=== PATIENT | female | born 1950 | race Caucasian/White ===

== ENCOUNTER 2017-08-01 08:49 | Day surgery (SDC) | payer BC, MEDICARE ==
[2017-06-30 10:11] VITALS: BMI 21.9
[2017-08-01 09:58] LABS: BASO # 0.01 K/mm3 (0.0-2.0); BASO % 0.2 % (0.0-3.0); EOS % 0.5 % (1.5-5.0); GRAN # 5.12 (1.4-6.5); GRAN % 80.2 % (50.0-68.0); HEMOGLOBIN 11.7 g/dL (12.0-16.0); LYMPH # 0.8 (1.2-3.4); LYMPH % 12.4 % (22.0-35.0); MEAN CELL VOLUME 93.4 fl (80.0-105.0); MEAN CORPUSCULAR HEMOGLOBIN 29.6 pg (25.0-35.0); MEAN CORPUSCULAR HGB CONC 31.7 g/dl (31.0-37.0); MEAN PLATELET VOLUME 9.4 fl (7.0-11.0); MONO # 0.4 (0.1-0.6); MONO % 6.7 % (1.0-6.0); RBC 3.95 10^6/uL (3.5-6.1); RED CELL DISTRIBUTION WIDTH 12.6 % (11.5-14.5); WHITE BLOOD COUNT 6.4 10^3/ul (4.5-11.0)
[2017-08-01 10:07] LABS: PROTHROMBIN TIME 11.6 SECONDS (9.4-12.5)
[2017-08-01 10:08] LABS: INR 1.01 (0.93-1.08)
[2017-08-01 10:12] LABS: ALB/GLOB RATIO 1.6 (1.1-1.8); ALBUMIN 3.9 g/dL (3.0-4.8); ALT/SGPT 37 U/L (7-56); AMYLASE 87 U/L (35-125); AST/SGOT 29 U/L (14-36); BLOOD UREA NITROGEN 16 mg/dL (7-21); CALCIUM 8.9 mg/dL (8.4-10.5); GAMMA GLUTAMYL TRANSPEPTIDASE 27 U/L (8-78); GFR AFRICAN-AMERICAN > 60; GFR NON-AFRICAN AMERICAN > 60; LIPASE 150 U/L (23-300)
[2017-08-01] MEDS ORDERED: cefTRIAXone (Rocephin) 1 gm Inj ONE (11:09)
[2017-08-01] MEDS ORDERED: Midazolam 2 MG/2 ML VIAL ONE (11:18)
[2017-08-01] MEDS ORDERED: Sodium Chloride 0.9% 1,000 ML IV SCH (13:15)
--- NOTE | 2017-08-01 13:37 | CARD ---
APPROVED REPORT EKG Measurement Heart [id number] CT 180P40 [id number] <Conclusion> Sinus rhythm with frequent premature ventricular complexes Possible Left atrial enlargement Borderline ECG
[2017-08-01 15:18] VITALS: BP 151/91; PULSE 61; RESP 14; TEMP 98.3; O2SAT 99
--- NOTE | 2017-08-01 19:26 | CARD ---
APPROVED REPORT EKG Measurement Heart [id number] [place] 182P51 [id number] <Conclusion> Sinus rhythm with frequent premature ventricular complexes Possible Left atrial enlargement Borderline ECG
== END 2017-08-01 15:14 | disposition home or self-care (01) ==
LOC: ENDO 08:49
PROVIDERS: ATTEND Internal Medicine Gastroenterology
DX: K86.2 Cyst of pancreas (principal); K22.2 Esophageal obstruction; K83.8 Other specified diseases of biliary tract; K31.7 Polyp of stomach and duodenum; K29.50 Unspecified chronic gastritis without bleeding; K21.0 Gastro-esophageal reflux disease with esophagitis
CPT/HCPCS: 36415; 43238; 43239; 80053; 82150 ×2; 82977; 83690; 83735; 85025; 85610; 85730; 88305; 88312; 88342; 93005; J0696; J2001; J2250; J3010; J7040 ×2

== ENCOUNTER 2017-08-01 15:11 | Observation (INO) | payer BC, MEDICARE ==
[2017-08-01 15:39] VITALS: BMI 23.8
--- NOTE | 2017-08-01 15:40 | ED PDOC ---
Arrival/HPI - General Chief Complaint: Weakness/Neurological Deficit Time Seen by Provider: 08/01/17 15:36 Historian: Patient - History of Present Illness Narrative History of Present Illness (Text): 08/01/17 15:37 67 year old female, with past medical history of cardiac stent (1x) and arrhythmia (tachycardia as well as bradycardia) presents to the Emergency department for severe bradycardia during endoscopy prior to ED arrival. Patient was reported to have experienced HR as low as 21 bpm, pt was under sedation and did not remember the event; pt was provided with fluid resuscitation and pt's HR became normalized; pt gained consciousness and was told of the clinical findings. NO CPR was ever required. Patient reported no recollection of the event. Patient informs occasional palpitation but denies any chest pain, shortness of breath, fever, chills, nausea, vomiting, diarrhea, abdominal pain, urinary output changes, changes in bowel movement or any other complaints. Patient presents to the Emergency department for further evaluation. PMD/ Set Up Operator: Dr. Dawit Jose Ball Winder: Dr. Blu Vázquez Time/Duration: Prior to Arrival Symptom Onset: Sudden Symptom Course: Improving Activities at Onset: Rest, Other (Endoscopy) Context: Other (endoscopy/outpt facility) Past Medical History - Provider Review Nursing Documentation Reviewed: Yes - Travel History Have you recently traveled outside [place] w/in the past 3 mons?: No - Past History Past History: No Previous - Infectious Disease Hx of Infectious Diseases: None - Tetanus Immunization Tetanus Immunization: Unknown - Reproductive Menopause: Yes Currently : No - Cardiac Hx Pacemaker: No - Neurological Hx Paralysis: No - Hematological/Oncological Hx Blood Transfusions: No Hx Blood Transfusion Reaction: No - Musculoskeletal/Rheumatological Hx Musculoskeletal Disorders: No - Psychiatric Hx Emotional Abuse: No Hx Physical Abuse: No Hx Substance Use: No - Anesthesia Hx Anesthesia Reactions: No Hx Malignant Hyperthermia: No - Suicidal Assessment Feels Threatened In Home Enviroment: No Family/Social History - Physician Review Nursing Documentation Reviewed: Yes Family/Social History: No Known Family HX Smoking Status: Never Smoked Hx Alcohol Use: No (VERY RARE) Hx Substance Use: No Hx Substance Use Treatment: No Allergies/Home Meds Allergies/Adverse Reactions: Allergies sulfamethoxazole Allergy (Verified 08/01/17 16:06) RASH trimethoprim Allergy (Verified 08/01/17 16:06) RASH Home Medications: Home Meds Medication Instructions Recorded Confirmed Aspirin [Lo-Dose Aspirin EC] 81 mg PO DAILY 06/30/17 08/01/17 Atorvastatin [Lipitor] 40 mg PO DAILY 06/30/17 08/01/17 Cholecalciferol [Vitamin D 1000 IU] 2,000 iu PO DAILY 06/30/17 08/01/17 Clopidogrel [Plavix] 75 mg PO DAILY 06/30/17 08/01/17 Ezetimibe [Zetia] 10 mg PO DAILY 06/30/17 08/01/17 Metoprolol Succinate [Toprol XL] 25 mg PO DAILY 06/30/17 08/01/17 Prednisone [Brayden] 5 mg PO DAILY 06/30/17 08/01/17 Ranolazine [Ranexa] 500 mg PO DAILY 06/30/17 08/01/17 amLODIPine [Norvasc] 5 mg PO DAILY 06/30/17 08/01/17 Review of Systems - Physician Review All systems were reviewed & negative as marked: Yes - Review of Systems Constitutional: Normal. absent: Fevers Eyes: Normal ENT: Normal Respiratory: Normal. absent: SOB Cardiovascular: Palpitations, Other (Bradycardia). absent: Chest Pain Gastrointestinal: Normal. absent: Abdominal Pain, Stool Changes, Diarrhea, Nausea, Vomiting Genitourinary Female: Normal. absent: Urine Output Changes Musculoskeletal: Normal Skin: Normal Neurological: Normal Endocrine: Normal Hemo/Lymphatic: Normal Psychiatric: Normal Physical Exam Vital Signs Reviewed: Yes Vital Signs Temp Pulse Resp BP Pulse Ox 08/01/17 15:36 98.2 F 67 17 113/32 L 99 Temperature: Afebrile Blood Pressure: Hypotensive Pulse: Regular Respiratory Rate: Normal Appearance: Positive for: Well-Appearing, Non-Toxic, Comfortable, Other ( resting in bed, alert/awake, GCS = 15, oriented x 3, NAD, comfortable appearing , cooperative) Pain Distress: None Mental Status: Positive for: Alert and Oriented X 3 - Systems Exam Head: Present: Atraumatic, Normocephalic Pupils: Present: PERRL, Other (no nystagmus, no photophobia, sclera anicteric, visual field intact b/l) Extroacular Muscles: Present: EOMI Conjunctiva: Present: Normal Ears: Present: Normal Mouth: Present: Moist Mucous Membranes, Normal Teeth, Other (no drooling/stridor , no exudate/lesions) Pharnyx: Present: Normal Nose (External): Present: Atraumatic Nose (Internal): Present: Normal Inspection Neck: Present: Normal Range of Motion, Trachea Midline, Other (no step off, no midline tenderness, no nuchal rigidity, no meningeal signs). No: Meningeal Signs, MIDLINE TENDERNESS Respiratory/Chest: Present: Clear to Auscultation, Good Air Exchange, Other ( CTA b/l, no w/r/r). No: Respiratory Distress, Accessory Muscle Use Cardiovascular: Present: Normal S1, S2, Other (multiple ectopy/PVC visible on monitor; + palpable extra beats noted during exam). No: Murmurs Abdomen: Present: Normal Bowel Sounds, Other (well nourished female, no focal tenderness, no masses/rebound/guarding/rigidity, no hollis's sign, no mcburney' s point tenderness). No: Tenderness, Distention, Peritoneal Signs Back: Present: Normal Inspection. No: CVA Tenderness, Midline Tenderness Upper Extremity: Present: Normal Inspection, Normal ROM, NORMAL PULSES, Neurovascularly Intact, Capillary Refill < 2s. No: Cyanosis, Edema Lower Extremity: Present: Normal Inspection, NORMAL PULSES, Normal ROM, Neurovascularly Intact, Capillary Refill < 2 s. No: Edema Neurological: Present: GCS=15, CN II-XII Intact, Speech Normal, Other (NIH stroke scale ~ 0) Skin: Present: Warm, Dry, Normal Color, Other (cap refill < 1sec, no ulcerations , no petechiae). No: Rashes Psychiatric: Present: Alert, Oriented x 3, Normal Insight, Normal Concentration Medical Decision Making ED Course and Treatment: 08/01/17 15:53 Impression: 67 year old female presents to the Emergency department for bradycardia prior to arrival. Differential Diagnosis included but are not limited to: sinus arrhythmia, rule out electrolyte imbalance vs. thyroid dysfunction vs. cardiac pathology Plan: -- EKG -- Labs -- Chest X-ray -- Aspirin -- IV Fluids -- Urinalysis -- Reassess and disposition Progress Notes: 08/01/17 17:10 pt is currently comfortable, denied any chest pain/palpitations due to patients abnl arrhythmia during GI procedure (endoscopy) prior to ED arrival, and given pt's multiple risk factors (i.e extensive heart disease, age) , i do not feel comfortable that the patient can be discharged home and will recommend admission for further observation, monitor patient's HR pt is made aware of her medical results agrees with admission/observation 08/01/17 17:[address] Hare, on-call PCP, made aware, agrees with admission/observation ; would like his medical practice manager contacted/paged and notified [phone] medical practice manager contacted, made aware, will see patient Re-evaluation Time: 17:08 Reassessment Condition: Improved - Critical Care Critical Care Minutes: 30 minutes Critical Care Time: Excluding Proc Time Narrative Critical Care (Text): 08/01/17 17:09 critical care time: 30min, excluding procedure time, excluding time teaching residents/students/mid-level providers; including initial eval/diagnosis, diagnostic interpretation, re-eval, consultations, final disposition - Lab Interpretations Lab Results: 08/01/17 15:45 08/01/17 15:45 Lab Results 08/01/17 16:38: Urine Color straw, Urine Appearance Clear, Urine pH 6.0, Ur Specific [place] 1.010, Urine Protein Negative, Urine Glucose (UA) Negative, Urine Ketones Negative, Urine Blood Negative, Urine Nitrate Negative, Urine Bilirubin Negative, Urine Urobilinogen 0.2, Ur Leukocyte Esterase Negative 08/01/17 15:45: TSH 3rd Generation 1.01 08/01/17 15:45: Sodium 142, Potassium 4.1, Chloride 106, Carbon Dioxide 26, Anion Gap 14, BUN 12, Creatinine 0.6 L, Est GFR ( Amer) > 60, Est GFR ( Non-Af Amer) > 60, Random Glucose 119 H, Calcium 8.4, Magnesium 2.0, Total Bilirubin 0.6, AST 26, ALT 42, Alkaline Phosphatase 64, Lactate Dehydrogenase 386, Total Creatine Kinase 38, Troponin I < 0.01, Total Protein 6.3, Albumin 3.8 , Globulin 2.5, Albumin/Globulin Ratio 1.5 08/01/17 15:45: PT 11.2, INR 0.98, APTT 37.8 H 08/01/17 15:45: WBC 4.8 D, RBC 3.89, Hgb 11.7 L, Hct 36.5, MCV 93.8, MCH 30.1, MCHC 32.1, RDW 12.7, Plt Count 208, MPV 9.4, Gran % 72.9 H, Lymph % (Auto) 18.3 L, [place] % (Auto) 8.6 H, Eos % (Auto) 0.2 L, Baso % (Auto) 0.0, Gran # 3.46, Lymph # (Auto) 0.9 L, [place] # (Auto) 0.4, Eos # (Auto) 0.0, Baso # (Auto) 0.00 I have reviewed the lab results: Yes Interpretation: All labs normal - RAD Interpretation Narrative RAD Interpretations (Text): 08/01/17 16:28 CXR - NAD Radiology Orders: 08/01/17 15:39 CHEST TWO VIEWS (PA/LAT) [RAD] Stat Chemical Sprayer: ED Physician - EKG Interpretation EKG Interpretation (Text): 08/01/17 17:20 Normal Sinus rhythm at 60 bpm, RAD, + ectopy, no st-t changes, otherwise BORDERLINE EKG; no old ekg to compare with Interpreted by ED Physician: Yes Type: 12 lead EKG Comparison: No previous EKG avail. - Medication Orders Current Medication Orders: Sodium Chloride (Sodium Chloride 0.9%) 1,000 mls @ 100 mls/hr IV .Q10H YANI Last Admin: 08/01/17 15:59 Dose: 100 mls/hr eMAR Start Stop Document 08/01/17 15:59 EWO (Rec: 08/01/17 15:59 EWO [id number]) Intravenous Solution Start Date 08/01/17 Start Time 15:59 Discontinued Medications Aspirin (Aspirin) 325 mg PO STAT STA Stop: 08/01/17 15:40 Last Admin: 08/01/17 15:59 Dose: 325 mg - Scribe Statement The provider has reviewed the documentation as recorded by the Adrian Palomino. All medical record entries made by the Adrian were at my direction and personally dictated by me. I have reviewed the chart and agree that the record accurately reflects my personal performance of the history, physical exam, medical decision making, and the department course for this patient. I have also personally directed, reviewed, and agree with the discharge instructions and disposition. Disposition/Present on Arrival - Present on Arrival Any Indicators Present on Arrival: No History of DVT/PE: No History of Uncontrolled Diabetes: No Urinary Catheter: No History of Decub. Ulcer: No History Surgical Site Infection Following: None - Disposition Have Diagnosis and Disposition been Completed?: Yes Diagnosis: Bradycardia associated with anesthesia, General medical exam Disposition: HOSPITALIZED Disposition Time: 17:08 Patient Plan: Admission, Observation Patient Problems: Current Active Problems Problem Status Onset Bradycardia associated with anesthesia Acute Condition: STABLE Print Language: K[place] Referrals: Domingo Jose MD [Primary Care Provider] - Follow up with primary Forms: [place]bin (Romansh)
[2017-08-01 15:57] LABS: EOS % 0.2 % (1.5-5.0); GRAN # 3.46 (1.4-6.5); GRAN % 72.9 % (50.0-68.0); HEMOGLOBIN 11.7 g/dL (12.0-16.0); LYMPH # 0.9 (1.2-3.4); LYMPH % 18.3 % (22.0-35.0); MEAN CELL VOLUME 93.8 fl (80.0-105.0); MEAN CORPUSCULAR HEMOGLOBIN 30.1 pg (25.0-35.0); MEAN CORPUSCULAR HGB CONC 32.1 g/dl (31.0-37.0); MEAN PLATELET VOLUME 9.4 fl (7.0-11.0); MONO # 0.4 (0.1-0.6); MONO % 8.6 % (1.0-6.0); RBC 3.89 10^6/uL (3.5-6.1); RED CELL DISTRIBUTION WIDTH 12.7 % (11.5-14.5); WHITE BLOOD COUNT 4.8 10^3/ul (4.5-11.0)
[2017-08-01] MEDS: Sodium Chloride 0.9% 1,000 ML IV SCH ×2 (15:59→20:11)
[2017-08-01 16:15] LABS: INR 0.98 (0.93-1.08); PARTIAL THROMBOPLASTIN TIME 37.8 Seconds (25.1-36.5); PROTHROMBIN TIME 11.2 SECONDS (9.4-12.5)
[2017-08-01 16:16] LABS: ALB/GLOB RATIO 1.5 (1.1-1.8); ALBUMIN 3.8 g/dL (3.0-4.8); ALT/SGPT 42 U/L (7-56); AST/SGOT 26 U/L (14-36); BLOOD UREA NITROGEN 12 mg/dL (7-21); CALCIUM 8.4 mg/dL (8.4-10.5); GFR AFRICAN-AMERICAN > 60; GFR NON-AFRICAN AMERICAN > 60
[2017-08-01 16:22] LABS: TROPONIN I < 0.01 ng/mL
[2017-08-01 16:42] LABS: URINE BILIRUBIN NEGATIVE (NEGATIVE); URINE BLOOD NEGATIVE (NEGATIVE); URINE GLUCOSE (UA) NEGATIVE (NEGATIVE); URINE LEUKOCYTE ESTERASE NEGATIVE Leu/uL (NEGATIVE); URINE PROTEIN NEGATIVE mg/dL (<30 mg/dL); URINE UROBILINOGEN 0.2 E.U./dL (<1 E.U./dL)
[2017-08-01 16:43] LABS: URINE APPEARANCE CLEAR (CLEAR)
--- NOTE | 2017-08-01 18:36 | CP.PCM.HP ---
<Ashia Steward - Last Filed: 08/01/17 20:38> History of Present Illness - History of Present Illness History of Present Illness: This patient is a 67 year old female with a PMHx significant for HTN, CAD w/ Stent placement (2012), Stroke (2012, with Left lower extremity residual defect) , fibromyalgia rheumatica, walking pneumonia, and abnormal stress test in 2013. Patient recently finished endoscopy and was in the PACU when the nurses noticed bradycardia in the 20's on the heart monitor. Patient does not remember the event and states she was asymptomatic but was told that she passed out and took some time to be awoken. She denies any fever, chills, SOB, chest pain, palpitations, generalized weakness, motor/sensory loss, abdominal pain, changes in bowel habits or urinary symptoms. She does complain of slight throat pain which is likely secondary to the procedure. ROS: As per HPI PMHx: HTN, CAD w/ Stent placement (2012), Stroke (2012, with Left lower extremity residual defect), fibromyalgia rheumatica, walking pneumonia, and abnormal stress test in 2012. PSHx: Stent 2012, Vasectomy, x 4, Right pleurectomy, Colonoscopy over 5 years ago (Normal) Allergies: Bactrim SocialHx: Denies any Tobacco, alcohol, or illicit drug use. Works as a nurse. FamHx: Mother - HLD, Father - Lung CA Meds: Reviewed PMD: Dr. Rebeca Lane. Present on Admission - Present on Admission Any Indicators Present on Admission: No Review of Systems - Review of Systems Review of Systems: As per HPI Past Patient History - Infectious Disease Hx of Infectious Diseases: None - Tetanus Immunizations Tetanus Immunization: Unknown - Past Social History Smoking Status: Never Smoked - CARDIAC Hx Pacemaker: No - PULMONARY Hx Respiratory Disorders: No - NEUROLOGICAL Hx Paralysis: No - HEENT Hx HEENT Problems: Yes Hx Cataracts: Yes - ENDOCRINE/METABOLIC Hx Hypothyroidism: Yes - HEMATOLOGICAL/ONCOLOGICAL Hx Blood Transfusions: No Hx Blood Transfusion Reaction: No - MUSCULOSKELETAL/RHEUMATOLOGICAL Hx Musculoskeletal Disorders: No - PSYCHIATRIC Hx Emotional Abuse: No Hx Physical Abuse: No Hx Substance Use: No - SURGICAL HISTORY Hx Surgeries: Yes Hx Cataract Extraction: Yes Hx Cardiac Catheterization: Yes Hx Cholecystectomy: Yes Hx Coronary Stent: Yes - ANESTHESIA Hx Anesthesia Reactions: No Hx Malignant Hyperthermia: No Meds Allergies/Adverse Reactions: Allergies Allergy/AdvReac Type Severity Reaction Status Date / Time sulfamethoxazole Allergy RASH Verified 08/01/17 16:06 trimethoprim Allergy RASH Verified 08/01/17 16:06 Physical Exam - Constitutional Appears: Well, Non-toxic, No Acute Distress - Head Exam Head Exam: ATRAUMATIC, NORMAL INSPECTION - Eye Exam Eye Exam: EOMI, Normal appearance, PERRL - ENT Exam ENT Exam: Mucous Membranes Moist - Neck Exam Neck exam: Negative for: Lymphadenopathy - Respiratory Exam Respiratory Exam: Clear to Auscultation Bilateral, NORMAL BREATHING PATTERN. absent: Rales, Rhonchi, Wheezes - Cardiovascular Exam Cardiovascular Exam: Irregular Rhythm, +S1, +S2. absent: Bradycardia, Tachycardia, JVD Additional comments: No Carotid Bruit - GI/Abdominal Exam GI & Abdominal Exam: Normal Bowel Sounds, Soft. absent: Tenderness - Extremities Exam Extremities exam: Positive for: normal capillary refill. Negative for: pedal edema - Neurological Exam Neurological exam: Alert, Oriented x3 - Psychiatric Exam Psychiatric exam: Normal Affect, Normal Mood Results - Vital Signs Recent Vital Signs: Last Vital Signs Temp 98.2 F 08/01/17 15:36 Pulse 63 08/01/17 17:24 Resp 18 08/01/17 17:24 BP 122/64 08/01/17 17:24 Pulse Ox 100 08/01/17 17:24 - Labs Result Diagrams: 08/01/17 15:45 08/01/17 15:45 Assessment & Plan - Assessment and Plan (Free Text) Assessment: 67 year old female with a PMHx significant for HTN, CAD w/ Stent placement (2012 ), Stroke (2012, with Left lower extremity residual defect), fibromyalgia rheumatica, walking pneumonia, and abnormal stress test admitted to observation for evaluation and treatment of bradycardia. Plan: Bradycardia EKG (ED): Sinus Rhythym with frequent PVC. Will repeat EKG x 2 Trop #1 - NEGATIVE, Trop #2 - PENDING Atropine to be kept at bedside. Normal Saline @ 100mls/hr Cardiology Consult (Dr. Sosa) HTN Hold Metoprolol/Hold Norvasc. Hx of CAD with Stent/HLD Home ASA/Plavix Home Lipitor 40mg HS Home Zetia 10mg PO Vitamin D Def. Home Vitamin D 2000 Daily Fibromyalgia Rheumatica Home Prednisone 5mg Daily DVT Proph Lovenox Patient discussed with Dr. Ananya Steward, PGY-1 <Remigio Hare U - Last Filed: 08/04/17 17:51> Results - Vital Signs Recent Vital Signs: Last Vital Signs Temp 98.3 F 08/02/17 12:00 Pulse 58 L 08/02/17 12:00 Resp 20 08/02/17 12:00 BP 147/63 08/02/17 12:00 Pulse Ox 97 08/02/17 09:00 - Labs Result Diagrams: 08/01/17 15:45 08/01/17 15:45 Attending/Attestation - Attestation I have personally seen and examined this patient.: Yes I have fully participated in the care of the patient.: Yes I have reviewed all pertinent clinical information: Yes Notes (Text): Please see/read my dictated notes.
--- NOTE | 2017-08-01 18:47 | RAD ---
HISTORY: bradycardia during a procedure COMPARISON: No prior. TECHNIQUE: Chest PA and lateral FINDINGS: LUNGS: No active pulmonary disease. PLEURA: No significant pleural effusion identified. No pneumothorax apparent. CARDIOVASCULAR: Normal. OSSEOUS STRUCTURES: No significant abnormalities. VISUALIZED UPPER ABDOMEN: Normal. OTHER FINDINGS: None. IMPRESSION: No active disease.
--- NOTE | 2017-08-01 19:25 | CARD ---
APPROVED REPORT EKG Measurement Heart [id number] [place] 184P70 [id number] <Conclusion> Sinus rhythm with frequent premature ventricular complexes Otherwise normal ECG
[2017-08-01] MEDS: Cholecalciferol 1,000 INTLU TAB PO SCH (22:13)
[2017-08-01 22:44] LABS: HDL CHOLESTEROL 56 mg/dL (29-60)
[2017-08-01 22:55] LABS: LDL CHOLESTEROL 44 mg/dL (0-129)
[2017-08-01 22:58] LABS: TROPONIN I < 0.01 ng/mL
[2017-08-01 23:04] LABS: FREE T4 1.27 ng/dL (0.78-2.19); T4 8.9 ug/dL (5.5-11.0)
[2017-08-02] MEDS: Sodium Chloride 0.9% 1,000 ML IV SCH ×2 (02:59→05:59)
[2017-08-02] MEDS ORDERED: Pantoprazole 40 mg EC Tab PO SCH (06:00)
[2017-08-02] MEDS: Cholecalciferol 1,000 INTLU TAB PO SCH (10:05)
[2017-08-02] MEDS: Enoxaparin 40 mg Syringe SC SCH ×2 (10:06→10:10)
[2017-08-02 11:46] VITALS: O2SAT 97
[2017-08-02 13:18] VITALS: BP 147/63; PULSE 58; RESP 20; TEMP 98.3
--- NOTE | 2017-08-02 21:49 | CON ---
DATE: 08/02/2017 HISTORY The patient is a 67-year-old woman who developed hemodynamics with significant bradycardia during a GI workup. PAST MEDICAL HISTORY: Notable for PTCA and stent 4 years ago in the LAD. She continues on Ranexa and clopidogrel as well as beta blockers. No stress test has been done recently. The patient suffers from hypertension without history of diabetes mellitus. She does suffer from hypercholesterolemia. SOCIAL HISTORY The patient does not smoke. REVIEW OF SYSTEMS: Fourteen-point review of systems is reviewed in detail. No cardiac symptomatology is noted. The patient feels well. PHYSICAL EXAMINATION: VITAL SIGNS: Blood pressure 131/53, heart rate is in the 50s. Normal sinus rhythm. NECK: Negative JVD. LUNGS: Without rales. HEART: S1, S2. EXTREMITIES: Without edema. LABORATORY DATA: Troponins are negative x2. TFTs are normal. Hemoglobin is 11.7. IMPRESSION 1. Transient hemodynamic significant bradycardia, likely due to a vasovagal effect during gastrointestinal procedure. 2. Stable angina. 3. Coronary artery disease. 4. Hypertension. 5. Hypercholesterolemia. PLAN: Given these findings, the patient is stable for discharge today. I have asked the patient to stop her beta-blockers. We will arrange for an outpatient stress test to evaluate her previous stent in the LAD. At that time, her medications can be stopped. Potential Plavix cessation as well as Ranexa cessation will depend on her stress test results. Jose Luis Sosa MD
--- NOTE | 2017-08-02 23:43 | CARD ---
APPROVED REPORT EKG Measurement Heart [id number] [place] 168P49 [id number] <Conclusion> Sinus rhythm with frequent premature ventricular complexes in a pattern of bigeminy Otherwise normal ECG
--- NOTE | 2017-08-03 08:34 | DS ---
LOCATION: The patient is seen in room 275, bed 2. HISTORY OF PRESENT ILLNESS: The patient lying in the bed watching TV. Overnight nurses' notes were reviewed. No adverse events were documented. The patient did not have any chest pain, shortness of breath, dizziness or any bradycardic event. PHYSICAL EXAMINATION: VITAL SIGNS: T-max 98.7. Telemetry shows sinus bradycardia and sinus rhythm, heart rate 60s and 70s. ekg monitor was reviewed. Most of the Telemetry monitoring strip shows sinus rhythm with PVCs. Blood pressure 154/67, 141/70, 122/64, 134/69; respirations 20; O2 sat 97 to 100%. HEENT: Head examination: Normocephalic, atraumatic. HEENT examination shows pink conjunctivae. Anicteric sclerae. No oropharyngeal lesion. No neck rigidity. CHEST: Kyphosis. LUNG: No rales, crackles or wheezing. CARDIOVASCULAR: S1, S2, regular rhythm. Questionable soft systolic murmur. left sternal border, right second intercostal space, left second intercostal space. ABDOMEN: Soft. Positive bowel sounds. GENITALIA: Female. RECTAL: Deferred. EXTREMITIES: No pitting edema, no calf numbness, no Homans' sign. NEUROLOGIC: The patient is alert, awake, oriented x3. Cranial nerves II to XII and grossly intact. GAIT: Not tested. Cardiac enzymes and troponin is negative x2. Cholesterol 120, LDL 44, HDL 56, TSH 1.01. T4 is 8.9. Urinalysis is negative. Repeat EKG from today shows sinus rhythm, heart rate 74 with PVCs. The patient is still awaiting Cardiology evaluation. FINAL IMPRESSION, PLAN AND DISCHARGE DIAGNOSIS: 1. Status post symptomatic bradycardia post endoscopy and post endoscopic ultrasound (resolved). 2. History of hypertension. 3. Normocytic anemia. 4. Hyperglycemia. 5. History of hypercholesterolemia. 6. History of coronary artery disease, angioplasty and stent placement. 7. History of hypothyroidism. 8. History of cholecystectomy. 9. History of cerebrovascular accident. 10. Status post upper endoscopic ultrasound. 11. Schatzki's ring of the gastroesophageal junction. 12. Pancreatic body cystic lesion suggestive of serous cystadenoma, status post fine-needle aspiration. 13. Dilated common bile duct of 9 mm. 14. Mild Schatzki's ring. 15. [place] grade A reflux esophagitis. 16. Gastric polyp. 17. Chronic gastritis. 18. Hiatal hernia. 19. Acquired mild Schatzki's ring at the gastroesophageal junction. 20. Gastric fundus diminutive sessile polyp. 21. Mild normocytic anemia. 22. History of rectosigmoid hyperplastic polyp. 23. History of hemorrhagic gastritis and chronic gastritis. 1. Severe symptomatic bradycardia. 2. History of hypertension. 3. History of coronary artery disease with stent placement. 4. History of hypothyroidism with history of hyperlipidemia. 5. Hypovitaminosis D. 6. Fibromyalgia rheumatica. 7. Hypertension. 8. Post endoscopic ultrasound and endoscopy. 9. Normocytic anemia. 10. History of hyperlipidemia. 11. Hyperglycemia. 12. Premature ventricular contraction with symptomatic bradycardia. 13. Status post upper endoscopic ultrasound. 14. Pancreatic body cyst, noncommunicating. 15. Mild acquired Schatzki ring at the gastroesophageal junction. 16. [place] grade A esophagitis at the gastroesophageal junction. 17. Gastric fundus diminutive sessile polyp. 18. Gastric body and gastric antrum erythema and inflammation. 19. Pancreatic body cystic lesion suggestive of serous cystadenoma status post fine-needle aspiration. 20. Dilated common bile duct of 9 mm. 21. Chronic gastritis. 22. History of coronary artery disease with angioplasty. 23. 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 24. History of pneumonia and right pleurectomy. 25. History of section. 26. History of colonoscopy, negative as per the patient. 27. History of angina. 28. History of dyslipidemia. PLAN: At this time, the patient may be considered for discharge after cleared by Cardiology. The patient was advised to hold amlodipine and metoprolol. The patient was advised to follow up with Dr. Domingo Jose on Friday, 08/04. The patient was advised to resume aspirin 81 daily, Lipitor 40 mg daily, vitamin D3 2000 units daily, Plavix 75 daily, Zetia 10 mg daily, prednisone 5 mg daily and Ranexa 500 mg daily, which can be titrated up for blood pressure control. The patient will be considered for discharge after cleared by Cardiology. Discharge followup with Dr. Domingo Jose on 08/04/2017. Time spent in the entire discharge process more than 45 minutes. Dictated and electronically signed, not read. Remigio MD Ananya ERICA
--- NOTE | 2017-08-04 09:12 | HP ---
Please refer to the detailed history and physical examination by Dr. Steward for complete details and the patient's physical examination and diagnostics. IMPRESSION: 1. Severe symptomatic bradycardia. 2. History of hypertension. 3. History of coronary artery disease with stent placement. 4. History of hypothyroidism with history of hyperlipidemia. 5. Hypovitaminosis D. 6. Fibromyalgia rheumatica. 7. Hypertension. 8. Post endoscopic ultrasound and endoscopy. 9. Normocytic anemia. 10. History of hyperlipidemia. 11. Hyperglycemia. 12. Premature ventricular contraction with symptomatic bradycardia. 13. Status post upper endoscopic ultrasound. 14. Pancreatic body cyst, noncommunicating. 15. Mild acquired Schatzki ring at the gastroesophageal junction. 16. [place] grade A esophagitis at the gastroesophageal junction. 17. Gastric fundus diminutive sessile polyp. 18. Gastric body and gastric antrum erythema and inflammation. 19. Pancreatic body cystic lesion suggestive of serous cystadenoma status post fine-needle aspiration. 20. Dilated common bile duct of 9 mm. 21. Chronic gastritis. 22. History of coronary artery disease with angioplasty. 23. 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 24. History of pneumonia and right pleurectomy. 25. History of section. 26. History of colonoscopy, negative as per the patient. 27. History of angina. 28. History of dyslipidemia. PLAN: At this time, the patient will be placed on telemetry observation as per request of the ER physician for evaluation of bradycardia. Repeat cardiac enzymes ordered. Cholesterol, lipid panel, thyroid panel ordered. Cardiology consultation, repeat EKG ordered. The patient's beta-blockers and calcium channel blockers will be stopped. The patient will be placed on telemetry, aspirin 81 daily, Lipitor 40 daily Lovenox 40 mg subcu daily, Plavix 75 daily, prednisone 5 mg daily, Protonix 40 mg daily, IV fluid 0.9 normal saline at 100 mL an hour ordered, vitamin D 2000 units daily ordered, Zetia 10 mg daily ordered. Please review and refer to the detailed history and physical examination by the hospital medical biller done on this patient. Dictated and electronically signed, not read. Remigio Hare MD
--- NOTE | 2017-08-04 09:35 | PN ---
DATE: 08/01/2017 SUBJECTIVE: This patient initially admitted to the same day surgery unit for endoscopic evaluation of the pancreatic cystic lesion. Patient had an EUS showed multiseptate large cystic lesion in the body of the pancreas measuring about 6 x 5 cm. Patient with the largest cystic component measuring about 2 cm was then noticed. Fine needle aspiration of the cystic fluid was sent then and was sent for the analysis for CEA, mucin and amylase. Patient is in the recovery room where the heart rate dropped transiently to 20 then subsequently recovered. Patient did have multiple PVCs in the EKG. Patient has history of coronary artery disease. Patient was subsequently transferred and sent to the ER for further evaluation and on monitoring. I have seen the patient again in the ER where she was comfortable. No GI complaints. Abdomen was soft, no tenderness. I did call and left a message to her and also patient is planned to be admitted under Dr. Hare for an observation. I did speak also with the resident following the patient. Thank you very much allowing us to participate in the care of the patient. Blu eKen MD
== END 2017-08-02 14:06 | disposition home or self-care (01) ==
LOC: ED 15:11 → ERH 17:23 → 2RSO 08-02 00:52
PROVIDERS: ADMIT Internal Medicine; ATTEND Internal Medicine
DX: R00.1 Bradycardia, unspecified (principal); D64.9 Anemia, unspecified; E03.9 Hypothyroidism, unspecified; E55.9 Vitamin D deficiency, unspecified; E78.00 Pure hypercholesterolemia, unspecified; E78.5 Hyperlipidemia, unspecified; I10 Essential (primary) hypertension; I25.118 Atherosclerotic heart disease of native coronary artery with other forms of angina pectoris; I49.3 Ventricular premature depolarization; K20.9 Esophagitis, unspecified; K22.2 Esophageal obstruction; K29.50 Unspecified chronic gastritis without bleeding; K83.8 Other specified diseases of biliary tract; K86.9 Disease of pancreas, unspecified; M79.7 Fibromyalgia; Z80.1 Family history of malignant neoplasm of trachea, bronchus and lung; I69.398 Other sequelae of cerebral infarction; Z87.01 Personal history of pneumonia (recurrent); Z90.49 Acquired absence of other specified parts of digestive tract; Z95.5 Presence of coronary angioplasty implant and graft
CPT/HCPCS: 71046; 80053; 80061; 81003; 82550; 83615; 83735; 84439; 84443; 84484; 85025; 85610; 85730; 93005; 99285; G0378; J7040